=== PATIENT | male | born 1985 | race Caucasian/White ===

== ENCOUNTER 2018-07-26 17:06 | Inpatient (IN) | payer OTHER ==
[~2018-07-26] VITALS: Ht 193 cm; Wt 130.1 kg
[2018-07-26] MEDS ORDERED: DAPSONE25 MG PO (18:24)
--- NOTE | 2018-07-26 19:25 | NUR ---
ROUNDED ON PT CHARGE. PRIMARY RNS AND FAMILY IN ROOM. QUESTIONS ANSWERED. NO REQUESTS AT THIS TIME. RIGHT ARM ELEVATED ON PILLOW. PT PROVIDED WITH ORIENTATION TO ROOM.
--- NOTE | 2018-07-26 20:04 | NUR ---
ADMISSION COMPLETED. PATIENT IS RESING IN BED. PATIENT HAS RIGHT ARM IN CAST. PATIENT OREINTED TO FLOOR, UNIT, AND SURROUNDINGS. PATIENT EDUCATED PITTING MACHINE OPERATOR LIGHT. PATIENT VERABLIZES UNDERSTANDING. AT THE BEDISED. CALL LIGHT IN REACH. URINAL PROVIDED.
--- NOTE | 2018-07-26 20:20 | NUR ---
ASSESEMENT COMPLETED. PATIENT IS RESTING IN BED WITH SLING APPLIED TO LEFT ARM. ICE APPLIED TO LEFT ARM. PATIENT RATES PAIN AT A 5/10. PRN PAIN MEDICATION GIVEN PER ORDER. IV FLUIDS INFUSING PER ORDER. FARIENDS WILL BRING PATIENT DINNER. EDUCATED PATIENT THAT HE IS NPO AT MIDNIGHT. PATIENT VERBALIZES UNDERSTANDING. PATIENTS IS IN THE ROOM. NO FURTHER NEEDS NOTED. CALL LIGHT IN REACH.
--- NOTE | 2018-07-26 22:40 | NUR ---
PATIENT RATES PAIN AT A 5/10. PATIENT GIVEN PRN PAIN MEDICATION PER ORDER. PATIENT PROVIDED WITH FRESH ICE PACKS. PATIENTS REMAINS IN THE ROOM. PATIENT WAS ABLE TO VOID. URINE SENT TO THE LAB PER ORDER. PATIENT DENIES ANY FURTHER NEEDS. CALL LIGHT IN REACH.
--- NOTE | 2018-07-27 02:55 | NUR ---
PATIENTS VITALS TAKEN AND RECORDED. PATIENTS INTAKE AND OUTPUT RECORDED. PATIENT RATES PAIN AT A 6/10. PATIENT GIVEN PRN PAIN MEDICATION. PATIENT DENIES ANY FURTHER NEEDS. CALL LIGHT IN REACH.
--- NOTE | 2018-07-27 04:27 | NUR ---
PATIENT RATES PAIN AT 6/10. PATIENT GIVEN PRN PAIN MEDICATION PER ORDER. PATIENT DENIES ANY FURTHER NEEDS AT THIS TIME. CALL LIGHT IN REACH.
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
--- NOTE | 2018-07-27 06:38 | NUR ---
PATIENTS VITALS TAKEN AND RECORDED. PATIENT RATES PAIN AT A 6/10. PATIENT GIVEN PRN PAIN MEDICATION PER ORDER. PATIENTS ARM REPOSITIONED. PATIENT DENIES ANY FURTHER NEEDS AT THIS TIME. IV INFUSING PER ORDER. CALL LIGHT IN REACH. REMAINS IN THE ROOM.
--- NOTE | 2018-07-27 07:36 | NUR ---
REPORT RECEIVED FROM ROBERTH HARRIS. DR. BAEZ TO BEDSIDE FOR ROUND. PT UPDATED ON PLAN OF CARE. PT REPORTS 2/10 PAIN AT THIS TIME AND DENIES NEED FOR ADDITIONL PAIN MEDICATIONS. PT VERBALIZESUNDERSTANDING OF PLAN OF CARE. BRACE IN PLACE OVER RIGHT ARM, CMS INTACT. AT BEDSIDE. CALL LIGHT WITHIN REACH.
--- NOTE | 2018-07-27 07:55 | NUR ---
pt called for pain medication. KNOWS ITS EARLY BUT "FOR SOME REASON IT IS MORE PAINFUL NOW". GIVEN .6 DILAUDID PER ORDER.
--- NOTE | 2018-07-27 08:30 | NUR ---
MORNING ASSESSMENT AND SURGICAL PREPARATIONS DUE. THIS RN TO BEDSIDE. PT SITTING UP IN BED. PT REPORTS 3/10 PAIN THAT "IS BETTER" SINCE PAIN MEDICATION ADMINISTRATION. PT DENIES NAUSEA. ASSESSMENT DONE. CMS INTACT ON RIGHT ARM. CAST, KORI WRAP, AND BRACE IN PLACE. PT DENIES NUMBNESS AND TINGLING IN FINGERS. ABRASIONS NOTED ON BACK OF HEAD, FRONT AND BACK OF LEFT KNEE. PT UP TO WIPE DOWN WITH CHG WIPES. NEW GOWN IN PLACE. PRE-PROCEEDURE CHECK LIST COMPLETED. PRE OP ABX AND FLUIDS HUNG. PT REPORTS NO ADDITIONAL REQUESTS OR COMPLAINTS AT THIS TIME. CALL LIGHT WITHIN REACH. FAMILY AT BEDSIDE.
--- NOTE | 2018-07-27 08:32 | NUR ---
GAVE THE PATIENT THE PRE-PROCEDURE WIPES AND HE IS COMFORTABLE WITH HIS GF HELPING HIM. GF IS GOING TO TAKE A SHOWER IN ROOM ONCE SHE IS DONE HELPING THE PATIENT. CALL LIGHT IN PLACE.
--- NOTE | 2018-07-27 08:45 | NUR ---
PATIENT SITTING UP IN BED, VISITORS IN ROOM. CALL LIGHT IN REACH. NO FURTHER NEEDS AT THIS TIME.
--- NOTE | 2018-07-27 10:15 | NUR ---
PT TAKEN TO SURGERY BY OR, RNS.
--- NOTE | 2018-07-27 12:11 | NUR ---
PT TAKEN TO SURGERY, WILL FOLLOW NEEDED
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
--- NOTE | 2018-07-27 13:36 | NUR ---
07/27/18 1336 Nany Benson 1325 PT TO PACU DROWSY TALKING. ARM BLOCKED DENIES PAIN AND NAUSEA
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
--- NOTE | 2018-07-27 14:20 | NUR ---
PT RETURNED FROM PACU. PT REPORTS 0/10 PAIN, BLOCK IN PLACE. RIGHT ARM NUMB AND ONLY GROSS MOVEMENT NOTED. DRESSING C/D/I AT THIS TIME. PT VOIDS WITH URINAL. ASSESSMENT DONE. CPOX IN PLACE. O2 SATURATION ABOVE 92% ON ROOM AIR. PT VISITING WITH FAMILY AT THIS TIME. NO ADDITIONAL REQUESTS OR COMPLAINTS. CALL LIGHT WITHIN REACH.
--- NOTE | 2018-07-27 15:30 | NUR ---
VITALS AND ASSESSMENT DUE. PT REPORTS USING URINAL AGAIN (900ML VOID NOTED). VITALS TAKEN. ASSESSMENT DONE. RIGHT ARM REMAINS NUMB AND WITH ONLY GROSS MOVEMENT. PT DENIES PAIN AND NAUSEA. PT TOELRATING PO FOOD AND FLUID. 92% ON ROOM AIR WITH COPX IN PLACE. AT BEDSIDE. NO ADDITIONAL REQUESTS OR COMPLAINTS AT THIS TIME. CALL LIGHT WITHIN REACH.
--- NOTE | 2018-07-27 16:20 | NUR ---
VITALS AND ASSESSMENT DUE. PT REPORTS 6/10 PAIN IN LEFT EYE. EYE EXAMED, REDNESS NOTED. EYE FLUSHED WITH NS FISH, MINIMAL RELIEF. MD CALLED. TEARS AND HOSPITALIST CONSULT ORDERED. PT UPDATED. PT ALSO REPORTS "FEELING COMING BACK IN MY ARM," PT REQUESTS PAIN MEDICATIONS. SEE MAR FOR MEDICATIONS GIVEN. ASSESSMENT DONE. PT UNABLE TO MOVE FINGERS AT THIS TIME. CAP REFILL IS LESS THAN [address] HERMAN TO BEDSIDE FOR EYE EXAMINATION. BED RAILS UP. CALL LIGHT WITHIN REACH.
--- NOTE | 2018-07-27 17:20 | NUR ---
ASSESSMENT AND VITALS DUE. PT LYING IN BED EATING DINNER. PT DENIES NAUSEA AND REPORTS 2/10 PAIN IN RIGHT ARM AND 3/10 PAIN IN LEFT EYE. PT STATES HIS EYE IS "MUCH BETTER." EYE DROPS GIVEN ORDERED. PT DENIES NEED FOR ADDITIONAL PAIN MEDICATION AT THIS TIME. PT NOTED TO BE DROPPING TO 86-89% WHILE RESTING. PT STARTED ON 1L O2 BY NC. X-RAYS IMAGES PROVIDED TO PT AND EXPLAINED. PT STATES HE HAS NO ADDITIONAL REQUESTS OR COMPLAINTS AT THIS TIME. CALL LIGHT WITHIN REACH.
--- NOTE | 2018-07-27 17:37 | NUR ---
PT EATING DINNER WITH AT BEDSIDE, NURSE IN ROOM. CALL LIGHT IN PLACE.
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
[2018-07-27] MEDS ORDERED: DAPSONE25 MG PO (18:29)
--- NOTE | 2018-07-27 18:30 | NUR ---
MED REC COMPLETE
--- NOTE | 2018-07-27 19:45 | NUR ---
RECEIVED REPORT FROM DAY SHIFT RN. PATIENT IS RESTING IN BED WATCHING LABTOP. PATIENT STATED "MY ARM IS STARTIGN TO ACHE". PATIENT GIVEN PRN PAIN MEDICATION PER ORDER. PATIENT DENIES ANY FURTHER NEEDS. CALL LIGHT IN REACH.
--- NOTE | 2018-07-27 21:30 | NUR ---
PATIENT ASSESEMENT COMPLETED. PATIENT HAS CAST IN PLACE ON RIGHT LOWER EXT. PATIENT ALSO HAS SLING IN PLACE ON RIGHT ARM. PATIENTS RIGHT EXT IS ELEVATED ON PILLOWS. PATIENT RATES PAIN AT A 5/10. PATIENT DESCRIBES PAIN "PIN AND NEEDLES, WITH PRESSURE". PATIENT GIVEN PRN PAIN MEDICATION PER ORDER. PATIENTS EVENING MEDICATIONS GIVEN PER ORDER. IV INFUSING PER ORDER. PATIENTS VITALS TAKEN AND RECORDED. PATIENT DENIES ANY FURTHER NEEDS CALL LIGHT IN REACH.
--- NOTE | 2018-07-28 00:08 | NUR ---
PATIENT IS RESTING IN BED WITH EYES CLOSED. CPOX IS WNL. ASLEEP ON THE COUCH. CALL LIGHT IN REACH.
--- NOTE | 2018-07-28 01:24 | NUR ---
PATIENT RATES PAIN AT A 4/10. PATIENT GIVEN PRN PAIN MEDICATION PER ORDER. PATIENTS RIGHT UPPER EXT REPOSTITIONED. PATIENTS VITALS TAKEN AND RECORDED. PATIENTS INTAKE AND OUTPUT RECORDED. PATIENT DENIES ANY FURTHER NEEDS. CALL LIGHT IN REACH. ASLEEP ON THE COUCH.
--- NOTE | 2018-07-28 03:26 | NUR ---
PATIENT IS RESTING IN BED WITH EYES CLSOED. CPOX WNL. CALL LIGHT IN REACH.
--- NOTE | 2018-07-28 04:41 | NUR ---
PATIENT CALLED AND REQUESTED PAIN MEDICATION. PATIENT GIVEN PRN PAIN MEDICATION PER ORDER. PATIENTS VITALS TAKEN AND RECORDED. PATIENT REPOSTIONED IN BED. PATIENT ICE WATER REFILLED. PATIENT DENIES ANY FURTHER NEEDS. CALL LIGHT IN REACH.
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
--- NOTE | 2018-07-28 07:06 | OR ---
[facility] [address] [place], [place] [address] Signed DATE OF OPERATION: 07/26/2018 SURGEON: Stevie Baez MD PREOPERATIVE DIAGNOSIS: Comminuted fracture, radius and ulna, right. POSTOPERATIVE DIAGNOSIS: Comminuted fracture, radius and ulna, right. PROCEDURE PERFORMED: Open reduction and internal fixation, ulnar and radial fractures, right. ANESTHESIA: Axillary block with sedation. SPECIMENS: There were no specimens. COMPLICATIONS: There were no complications. TOURNIQUET TIME: 90 minutes. WHAT WAS DONE: The patient was taken to the operating room, placed on the operating table in supine position. After anesthesia was induced and the patient sedated, the right upper extremity was positioned prepped and draped in the routine sterile fashion. The arm was exsanguinated with an Esmarch bandage. Pneumatic tourniquet about the upper arm was inflated to 250 mmHg pressure. We then held the arm flexed about 90 degrees at the elbow and localized the ulnar fracture with fluoroscopy. We then made a longitudinal incision directly over the subcutaneous border of the ulna. Skin was divided sharply. Subcutaneous tissue was bluntly spread. There was really no more dissection required. We were able to realign the two primary fracture line although there was significant comminution at the fracture site with numerous small fragments. After aligning it and checking the position fluoroscopically it was secured with a 7 hole LC-DCP plate. This gave us good alignment and good position of the ulnar fracture. We then irrigated the wound and closed in a standard fashion. We then supinated the forearm and made a volar incision over the FCR tendon sheath. Skin was divided sharply. Subcutaneous tissue was Electronically Signed By: STEVIE BAEZ MD 07/28/18 0706 PATIENT NAME: HENRRY TRUJILLO OPERATIVE REPORT DATE OF : [birth year] REPORT #: [id number] PHYSICIAN: STEVIE BAEZ MD PCP: OTHER PCP REPORT IS CONFIDENTIAL AND NOT TO BE RELEASED WITHOUT AUTHORIZATION [facility] [address] [place], [place] [address] Signed bluntly spread. The radial artery vein and nerve were identified and retracted in a lateral direction. Again no additional dissection was required because of the severe displacement of the fracture had created severe soft tissue stripping. There was marked comminution of the distal fragment both in the coronal transverse and sagittal planes. We provisionally reduced the numerous fractures distally and held them with a combination of a K-wires and clamps. We then reduced the primary fracture line and secured the construct with an 8 hole LC-DCP plate. This gave us good alignment, good position, and good fixation. The wound was gently irrigated. Because there was so much comminution, we did take a package of demineralized bone matrix and impacted in and around the primary fracture sign. Again, the wound was gently irrigated, closed in a standard fashion. A sterile dressing applied. The patient was awakened, taken to recovery room where he arrived in stable condition. Counts were correct and antibiotic protocols were followed. MD ANDRES GreeneB/BAYLEE /[id number] Copies: ~ Electronically Signed By: STEVIE BAEZ MD 07/28/18 0706 PATIENT NAME: HENRRY TRUJILLO OPERATIVE REPORT DATE OF : [birth year] REPORT #: [id number] PHYSICIAN: STEVIE BAEZ MD PCP: OTHER PCP REPORT IS CONFIDENTIAL AND NOT TO BE RELEASED WITHOUT AUTHORIZATION
--- NOTE | 2018-07-28 07:20 | NUR ---
BEDSIDE REPORT RECEIVED FROM STEVEN LEPE. PT RESTING SUPINE IN BED. PT STATES HE HAS HAD GOOD PAIN CONTROL WITH THE ORAL OPIODS. CALL LIGHT AND H20 IN REACH. PT VERBALIZED EAGERNESS TO DISCHARGE TODAY. PT DENIES FURTHER NEEDS OR CONCERNS AT THIS TIME. FAMILY AT BEDSIDE.
--- NOTE | 2018-07-28 08:24 | NUR ---
PATIENT UP AND DRESSED IN THE CHAIR. CALL LIGHT IN REACH. WARM WASHCLOTHS OFFERED. NO FUTHER NEEDS AT THIS TIME.
--- NOTE | 2018-07-28 08:52 | NUR ---
PT ALERT AND ORIENTED. SITTING UP IN CHAIR EATING BREAKFAST PT VERBALIZED EAGERNESS FOR DISCHARGE SOON AND STATES THAT HE CAN NO LONGER TOLERATE PULSE OX TO RIGHT FINGER AND THAT IF IT IS PL;ACED ON HIS LEFT HAND THEN BOTH OF HIS HANDS ARE USELESS. PT SATTING 95% ON ROOM AIR AND APPEARS TO BE IN NO RESPIRATORY DISTRESS. RR18. PULSE OXIMETER REMOVED PER PT REQUEST. PT AGREES TO COUGH AND DEEP BNREATH IF FEELING SOB AND TO USE CALL LIGHT. STATES "JUST GET ME MOVING TOWARDS THE DOOR, I'VE GOT KIDS AT [facility] THAT I'D LIKE TO SEE AND DON'T SEE ANY REASON FOR ME TO STAY HERE I'M EATING DRINKING AND PEEING JUST FINE AND I'M WALKING AROUND MY ROOM WITHOUT A PROBLEM. VOICE MESSAGE LEFT ON DR JAMES CELL PHONE REQUESTING CALL BACK. PT DECLINES HAVING ANY FURTHER NEEDS/CONCERNS.
--- NOTE | 2018-07-28 09:06 | NUR ---
Pt called as his iv infusion has completed. He refused to have another bag of fluid hung and his iv site was saline locked at this time. The pt's primary RN was made aware of the pt's refusal to have a new bag of fluid hung.
--- NOTE | 2018-07-28 10:00 | NUR ---
PT UP AMBULATING SEVERAL LAPS IN HALLS WITH . CMS INTACT TO AFFECTED RIGHT HAND. PT STATES HIS PAIN IS TOLERABLE AND VERBAILIZED READINESS FOR DISCHARGE. AWARE.
[2018-07-28] MEDS ORDERED: NORCO 10-325 T1 EACH PO (10:38)
[2018-07-28] MEDS ORDERED: TRAMADOL HCL50 MG PO (10:39)
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
== END 2018-07-28 11:35 | disposition home or self-care (01) | DRG 512 ==
LOC: ED 17:06 → MS 18:52
PROVIDERS: ADMIT Orthopaedic Surgery
PROC: 0PSK04Z Reposition Right Ulna with Internal Fixation Device, Open Approach (ICD-10-PCS; 2018-07-27)
PROC: 3E0T3BZ Introduction of Anesthetic Agent into Peripheral Nerves and Plexi, Percutaneous Approach (ICD-10-PCS; 2018-07-27)
PROC: 0PSH04Z Reposition Right Radius with Internal Fixation Device, Open Approach (ICD-10-PCS; principal; 2018-07-27 12:15)
DX: S52.331A Displaced oblique fracture of shaft of right radius, initial encounter for closed fracture (principal); S52.201A Unspecified fracture of shaft of right ulna, initial encounter for closed fracture; G89.18 Other acute postprocedural pain; H57.12 Ocular pain, left eye; L98.9 Disorder of the skin and subcutaneous tissue, unspecified; Z79.2 Long term (current) use of antibiotics; V48.6XXA Car passenger injured in noncollision transport accident in traffic accident, initial encounter; Y92.410 Unspecified street and highway as the place of occurrence of the external cause
CPT/HCPCS: 01830; 36415; 64415; 70450; 71045; 73090; 73110; 76942; 80048; 80053; 81001; 85025; 99285-25; C1713; G0480; J0690; J1100; J1170; J1885; J2250; J2405; J2704; J2795; J7120